=== PATIENT | male | born 1960 | race Caucasian/White ===

== ENCOUNTER 2019-12-09 09:03 | Inpatient (IN) | payer OTHER, SELFPAY ==
[~2019-12-09] VITALS: Ht 170.2 cm; Wt 117.9 kg
[2019-12-09 09:22] VITALS: Ht 170.2 cm; Wt 117.9 kg
[2019-12-09 10:07] LABS: BASOPHIL % 0.7 % (0-2)
[2019-12-09 10:14] LABS: PLATELET COUNT 67 x10^3mcL (130-400); RED CELL DISTRIBUTION WIDTH 15.1 % (11.5-14.5)
[2019-12-09 10:16] LABS: CALCIUM 8.4 mg/dL (8.5-10.1); CARBON DIOXIDE 26.4 mmol/L (21-32); CHLORIDE SERUM 106 mmol/L (98-107); CREATININE SERUM 1.6 mg/dL (0.7-1.3); GFR1 47 mL/min; GLUCOSE SERUM 193 mg/dL (74-106); POTASSIUM SERUM 3.4 mmol/L (3.5-5.1); SODIUM SERUM 139 mmol/L (136-145)
[2019-12-09 10:34] LABS: ALKALINE PHOSPHATASE 98 U/L (46-116); ALT/SGPT 24 U/L (16-63); AST/SGOT 49 U/L (15-37); BILIRUBIN TOTAL 1.82 mg/dL (0.20-1.00); TOTAL PROTEIN, SERUM 6.6 g/dL (6.4-8.2)
[2019-12-09 10:35] LABS: ALBUMIN 2.3 g/dL (3.4-5.0); CHOLESTEROL 100 mg/dL (<200)
[2019-12-09] MEDS ORDERED: ENULOSE10 GM/151 PO (11:49)
[2019-12-09] MEDS ORDERED: FUROSEMIDE80 MG (11:50)
[2019-12-09] MEDS ORDERED: ISOSORBIDE MON120 MG PO (11:50)
[2019-12-09] MEDS ORDERED: SPIRIVA18 MC1 (11:51)
[2019-12-09] MEDS ORDERED: ATORVASTATIN CA40 M1 (11:51)
[2019-12-09] MEDS ORDERED: MOMETASONE FUR500 ML HHN (11:51)
[2019-12-09] MEDS ORDERED: TAMSULOSIN HCL0.4 MG (11:51)
[2019-12-09] MEDS ORDERED: ALD25 PO (11:52)
[2019-12-09] MEDS ORDERED: ASPIRIN FOR CHI81 M1 (11:52)
[2019-12-09] MEDS ORDERED: CARVEDILOL ER40 MG PO (11:53)
[2019-12-09 11:55] LABS: microscopic required? YES; urine erythrocyte TRACE (NEGATIVE)
[2019-12-09 12:15] LABS: AMPHETAMINE QUAL UR NONE DETECTED (See below)
[2019-12-09 13:20] VITALS: BP 113/52
[2019-12-09 15:08] VITALS: BP 124/62
[2019-12-09 18:28] VITALS: BP 145/62
[2019-12-09 20:22] VITALS: BP 121/54
[2019-12-10 05:40] VITALS: BP 116/52
[2019-12-10 06:37] LABS: BASOPHIL % 0.5 % (0-2)
[2019-12-10 07:02] LABS: RED CELL DISTRIBUTION WIDTH 15.1 % (11.5-14.5)
[2019-12-10 07:03] LABS: PLATELET COUNT 66 x10^3mcL (130-400)
[2019-12-10 07:13] LABS: CALCIUM 8.7 mg/dL (8.5-10.1); CARBON DIOXIDE 26.6 mmol/L (21-32); CREATININE SERUM 1.6 mg/dL (0.7-1.3); POTASSIUM SERUM 4.4 mmol/L (3.5-5.1)
[2019-12-10 07:32] LABS: T4(THYROXINE) 3.5 ug/dL (4.7-13.3)
[2019-12-10 08:43] LABS: ERYTHROCYTE SED RATE 50 mm/hr (0-20)
[2019-12-10 08:56] VITALS: BP 115/54
[2019-12-10 12:03] VITALS: BP 105/52
[2019-12-10 16:44] VITALS: BP 123/57
[2019-12-10 21:04] VITALS: BP 109/54
[2019-12-11 05:42] VITALS: BP 105/52
[2019-12-11 07:30] LABS: BASOPHIL % 0.9 % (0-2)
[2019-12-11 07:51] LABS: CALCIUM 8.2 mg/dL (8.5-10.1); CARBON DIOXIDE 28.5 mmol/L (21-32); CREATININE SERUM 1.7 mg/dL (0.7-1.3)
[2019-12-11 07:59] LABS: PLATELET COUNT 67 x10^3mcL (130-400); RED CELL DISTRIBUTION WIDTH 15.1 % (11.5-14.5)
[2019-12-11 09:08] LABS: RHEUMATOID ARTHRITIS FACTOR <10.0 IU/mL (0.0-13.9)
[2019-12-11 09:28] VITALS: BP 113/50
[2019-12-11 12:31] VITALS: BP 106/49
[2019-12-11 16:40] VITALS: BP 110/52
[2019-12-11 21:59] VITALS: BP 109/51
[2019-12-12 05:08] VITALS: BP 106/53
[2019-12-12 07:01] LABS: BASOPHIL % 0.8 % (0-2); PLATELET COUNT 58 x10^3mcL (130-400); RED CELL DISTRIBUTION WIDTH 14.8 % (11.5-14.5)
[2019-12-12 07:56] VITALS: BP 125/53
[2019-12-12 12:20] VITALS: BP 114/54
[2019-12-12 12:30] VITALS: BP 114/54
[2019-12-12 15:40] VITALS: BP 101/46
[2019-12-12 19:50] VITALS: BP 101/52
[2019-12-13 05:22] VITALS: BP 125/57
[2019-12-13 08:33] VITALS: BP 114/46
[2019-12-13 12:06] VITALS: BP 121/52
[2019-12-13 12:38] VITALS: BP 121/52
[2019-12-13] MEDS ORDERED: ROC1I IV (13:15)
[2019-12-13] MEDS ORDERED: LANTI SQ (13:15)
[2019-12-13 16:11] VITALS: BP 110/46
== END 2019-12-13 17:55 | disposition other institution (70) | DRG 441 ==
LOC: ED 09:03 → DU 11:02
PROVIDERS: Emergency Medicine; ADMIT Internal Medicine; ATTEND Internal Medicine
DX: K72.90 Hepatic failure, unspecified without coma (principal); G93.41 Metabolic encephalopathy; J96.90 Respiratory failure, unspecified, unspecified whether with hypoxia or hypercapnia; J18.9 Pneumonia, unspecified organism; J44.0 Chronic obstructive pulmonary disease with (acute) lower respiratory infection; J44.9 Chronic obstructive pulmonary disease, unspecified; I12.9 Hypertensive chronic kidney disease with stage 1 through stage 4 chronic kidney disease, or unspecified chronic kidney disease; E11.22 Type 2 diabetes mellitus with diabetic chronic kidney disease; K74.60 Unspecified cirrhosis of liver; N18.9 Chronic kidney disease, unspecified; E11.649 Type 2 diabetes mellitus with hypoglycemia without coma; Z20.828 Contact with and (suspected) exposure to other viral communicable diseases
CPT/HCPCS: 82962; 83880; 86431; G0378; G0480; J0456; J0696; J1815; J2310; J3490; J3535; J7030; J7050; Q0092; U0003-CS